=== PATIENT | female | born 1970 | race Caucasian/White ===

== ENCOUNTER 2018-11-12 07:08 | Day surgery (SDC) | payer MEDICAID ==
[~2018-11-12] VITALS: Ht 162.6 cm; Wt 99.8 kg
[2018-11-12] MEDS ORDERED: BUPIVACAINE HCL 0.5% (5MG/ML) 50ML ONE (07:42)
[2018-11-12] MEDS ORDERED: SKIN ADHESIVE 0.7 GM EA TOP ONE (07:42)
[2018-11-12] MEDS: LACTATED RINGERS 1,000 ML IV SCH ×2 (08:10→11:04)
[2018-11-12] MEDS ORDERED: SUCCINYLCHOLINE CHLORIDE 200MG/10ML IV ONE (08:38)
[2018-11-12] MEDS ORDERED: ONDANSETRON HCL 4MG/2ML INJ ONE (08:38)
[2018-11-12] MEDS ORDERED: CEFAZOLIN SODIUM 1000MG/VIAL ONE (08:38)
[2018-11-12] MEDS ORDERED: METOCLOPRAMIDE HCL 10MG/2ML VIAL ONE (08:38)
[2018-11-12] MEDS ORDERED: PROPOFOL 200MG/20ML VIAL IV ONE (08:38)
[2018-11-12] MEDS ORDERED: EPHEDRINE SULFATE 50MG/ML VIAL ONE (08:38)
[2018-11-12] MEDS ORDERED: FENTANYL CITRATE/PF 50MCG/ML 2ML VIAL ONE ×3 (08:38→09:24)
[2018-11-12] MEDS ORDERED: SODIUM CHLORIDE 0.9% 10ML VIAL ONE (08:38)
[2018-11-12] MEDS ORDERED: LIDOCAINE HCL/PF 1% 10 MG/ML 5ML VIAL ONE (08:38)
[2018-11-12] MEDS ORDERED: GLYCOPYRROLATE 0.2 MG/ML 2ML VIAL ONE (08:38)
[2018-11-12] MEDS ORDERED: ROCURONIUM BROMIDE 10MG/ML VIAL 5ML IV ONE (08:38)
[2018-11-12] MEDS ORDERED: PHENYLEPHRINE HCL 10 MG/ML 1ML (IV VIAL) IV ONE (08:38)
[2018-11-12] MEDS ORDERED: MIDAZOLAM HCL 2 MG/2 ML VIAL ONE (08:38)
[2018-11-12] MEDS ORDERED: NEOSTIGMINE METHYLSULFATE 1MG/ML 10 ML VIAL ONE (08:38)
[2018-11-12] MEDS ORDERED: AMLO10TA80 PO (08:54)
[2018-11-12] MEDS ORDERED: HYDR25TA PO (08:54)
[2018-11-12] MEDS ORDERED: ASPI-1393 PO (08:54)
[2018-11-12] MEDS ORDERED: LOSA50TA41 PO (08:54)
[2018-11-12] MEDS ORDERED: SODIUM CHLORIDE 0.9% 1,000 ML IV ONE (09:59)
[2018-11-12] MEDS ORDERED: MORPHINE SULFATE 2 MG/ML CPJ (NOT FOR IM USE) IV PRN (10:00)
[2018-11-12] MEDS ORDERED: MEPERIDINE HCL/PF 25MG/ML CPJ IV PRN ×2 (10:00)
[2018-11-12] MEDS ORDERED: ONDANSETRON HCL 4MG/2ML INJ IV PRN (10:00)
[2018-11-12] MEDS ORDERED: LABETALOL HCL 5MG/ML VIAL 20ML IV ONE (10:13)
[2018-11-12] MEDS: HYDROMORPHONE HCL/PF 2MG/ML CPJ IV PRN ×3 (11:00→11:22)
[2018-11-12 11:22] VITALS: BP 130/68
== END 2018-11-12 14:00 | disposition home or self-care (01) ==
LOC: OR 07:08
PROVIDERS: ATTEND Surgery
DX: K42.9 Umbilical hernia without obstruction or gangrene (principal); K43.2 Incisional hernia without obstruction or gangrene; I10 Essential (primary) hypertension; K21.9 Gastro-esophageal reflux disease without esophagitis; E78.00 Pure hypercholesterolemia, unspecified; D64.9 Anemia, unspecified; M19.90 Unspecified osteoarthritis, unspecified site; E66.01 Morbid (severe) obesity due to excess calories; Z79.82 Long term (current) use of aspirin; Z90.710 Acquired absence of both cervix and uterus; Z98.51 Tubal ligation status; Z68.37 Body mass index [BMI] 37.0-37.9, adult; Z79.899 Other long term (current) drug therapy
CPT/HCPCS: 49565; 49568; 49585; 88302; C1781; J0330; J0690; J1170; J2250; J2405; J2704; J2710; J2765; J3010; J3490; J2370

== ENCOUNTER 2023-10-05 06:13 | Emergency (ER) | payer BC, MEDICAID ==
[~2023-10-05] VITALS: Ht 162.6 cm; Wt 98.0 kg
[~2023-10-05 06:13] MED LIST: AMLO10TA80 PO; ASPI-1497 PO; HYDR25TA PO; LOSA50TA41 PO
[2023-10-05 06:15] VITALS: PULSE 90; O2SAT 98
[2023-10-05 06:20] VITALS: BP 155/91; RESP 16; TEMP 98.4; O2SAT 97
[2023-10-05] MEDS: FAMOTIDINE 20MG TABLET PO ONE (06:30)
[2023-10-05] MEDS ORDERED: PREDNISONE 20MG TABLET PO ONE (06:30)
[2023-10-05] MEDS: DIPHENHYDRAMINE 25MG CAPSULE PO ONE (06:30)
[2023-10-05] MEDS ORDERED: DIPH25CA83 MT (06:43)
[2023-10-05] MEDS ORDERED: EPIN0.3P3 IM (06:43)
[2023-10-05] MEDS ORDERED: P20 MT (06:43)
[2023-10-05] MEDS: DEXAMETHASONE 10 MG/ML VIAL PO ONE (06:45)
[2023-10-05] MEDS: EPINEPHRINE 1:1000 1 MG/ML AMP INJ ONE (06:45)
[2023-10-05] MEDS ORDERED: FAMO-135 MT (06:54)
[2023-10-05] MEDS: HYDROCORTISONE 1% OINT 28.35GM TOP SCH (07:45)
== END 2023-10-05 12:45 | disposition home or self-care (01) ==
LOC: ER 06:13
DX: T78.2XXA Anaphylactic shock, unspecified, initial encounter (principal); E78.00 Pure hypercholesterolemia, unspecified; I10 Essential (primary) hypertension; Z90.710 Acquired absence of both cervix and uterus; Z79.899 Other long term (current) drug therapy; X58.XXXA Exposure to other specified factors, initial encounter
CPT/HCPCS: 99284; 96374; Q0163; J1100; J3490